=== PATIENT | male | born 1990 | race African-American/Black ===

== ENCOUNTER 2017-06-13 22:09 | Emergency (ER) | payer OTHER, MEDICAID ==
[2017-06-14 00:16] VITALS: BP 147/88
[2017-06-14] MEDS ORDERED: HYDROCODONE/ACETAMINOPHEN 5-325 MG TABLET PO ONE (00:41)
[2017-06-14] MEDS ORDERED: CIPROFLOXACIN HCL 500 MG TABLET PO ONE (00:41)
[2017-06-14] MEDS ORDERED: HYDROCODONE/ACETAMINOPHEN 5-325 MG (6 TAB/ER DISP) PO PRN (00:41)
[2017-06-14] MEDS ORDERED: DIPH/PERTUSS(ACELL)/TETANUS VAC/PF 0.5 ML SYR (>=10YO) IM ONE (00:41)
--- NOTE | 2017-06-14 00:47 | RADIOLOGY REPORT (SQ) ---
EXAM DESCRIPTION: FOOT LEFT COMPLETE CLINICAL HISTORY: 26 years, Male, Stepped on nail/pain COMPARISON: None. NUMBER OF VIEWS: 3 LIMITATIONS: None. FINDINGS: In and area of indicated puncture injury of the plantar aspect of the forefoot, no evidence of radiopaque foreign body and no evidence of bone or joint involvement. 0.8 cm ossicular avulsive fragment of the medial malleolus of the left ankle. IMPRESSION: No acute findings. 2010 [employer]- All Rights Reserved
--- NOTE | 2017-06-14 01:24 | ER Document Report ---
ED General - General Chief Complaint: Puncture Wound to Foot Stated Complaint: WC/LEFT FOOT INJURY Time Seen by Provider: 06/14/17 00:32 Notes: Patient is a 26-year-old male who presents complaining of pain in the bottom of his left foot. Patient says he stepped on nail that went to the bottom of his boot into his foot. He denies being diabetic. He says he only has pain at the area where the nail inserted and then into the distal part of his foot. He says it does hurt when he moves his toes. He denies any other injuries. He is unsure when his last tetanus shot was. He has no other complaints at this time. TRAVEL OUTSIDE OF THE [place] IN LAST 30 DAYS: No Past Medical History - Social History Smoking Status: Unknown if Ever Smoked Frequency of alcohol use: None Drug Abuse: None Family History: Reviewed & Not Pertinent Patient has suicidal ideation: No Patient has homicidal ideation: No Renal/ Medical History: Denies: Hx Peritoneal Dialysis Review of Systems - Review of Systems Notes: My Normal Review Basic REVIEW OF SYSTEMS: CONSTITUTIONAL : Denies fever, chills, or sweats. Denies recent illness. MUSCULOSKELETAL: Puncture wound to bottom of left foot. SKIN: Denies rash or skin lesions. NEUROLOGICAL: Denies sensory or motor loss. ALL OTHER SYSTEMS REVIEWED AND NEGATIVE. Physical Exam - Vital signs Vitals: Temp Pulse Resp BP Pulse Ox 98.2 F 73 16 147/88 H 100 06/14/17 00:14 06/14/17 00:14 06/14/17 00:14 06/14/17 00:14 06/14/17 00:14 - Notes Notes: General Appearance: Well nourished, alert, cooperative, no acute distress, moderate obvious discomfort. Vitals: reviewed, See vital signs table. Extremities: strength 5/5 in all extremities, good pulses in all extremities, patient has a very small puncture wounds about the left foot. Did clean the area with chlorhexidine. I irrigated it thoroughly with saline. Denies any evidence of foreign body. There is no significant swelling or redness or warmth. Patient does have pain when he moves his toes and says it hurts into his foot. He is able to move his toes and his distal sensation is intact. Skin: warm, dry, appropriate color, no rash Neuro: speech clear, oriented x 3, normal affect, responds appropriately to questions. Course - Re-evaluation Re-evalutation: 06/14/17 05:57 Thoroughly cleaned and irrigated the area with patient had a puncture wound. X- ray shows evidence of foreign body or fracture of the foot. Will place him on Cipro to help guard against Pseudomonas and infection. Informed him that there is always still possible he could develop infection therefore he must have a low threshold to return to ER if he has swelling, redness, warmth, or worsening pain in his foot. Patient agrees with plan and will be discharged home. Dictation of this chart was performed using voice recognition software; therefore, there may be some unintended grammatical errors. - Vital Signs Vital signs: Temp Pulse Resp BP Pulse Ox 98.2 F 73 16 147/88 H 100 06/14/17 00:14 06/14/17 00:14 06/14/17 00:14 06/14/17 00:14 06/14/17 00:14 Discharge - Discharge Clinical Impression: Puncture wound of foot Qualifiers: Encounter type: initial encounter Laterality: left Qualified Code(s): S91.332A - Puncture wound without foreign body, left foot, initial encounter Condition: Good Disposition: HOME, SELF-CARE Instructions: Oral Narcotic Medication ([facility]) Additional Instructions: Please continue to keep your foot clean and try not to wear a boot on your foot for the next 2 days. Please follow-up with the orthopedic doctor if you are still having any pain in your foot after 5 days of treatment. Please take the antibiotic as prescribed. This to help prevent infection. Sometimes despite an antibiotic you will still develop an infection. Signs of infection would be redness or swelling to your foot or fevers. If you have any of the symptoms please return to the ER immediately. Prescriptions: Ciprofloxacin HCl [Cipro 500 mg Tablet] 500 mg PO BID #10 tablet Forms: Return to Work Referrals: NEMESIO CASANOVA MD [ACTIVE STAFF] - 06/19/17
== END 2017-06-14 01:30 | disposition home or self-care (01) ==
LOC: ER 22:09
DX: S91.332A Puncture wound without foreign body, left foot, initial encounter (principal); W45.0XXA Nail entering through skin, initial encounter; Y99.0 Civilian activity done for income or pay
CPT/HCPCS: 90471; 90715; 99283

== ENCOUNTER 2018-01-31 10:43 | Emergency (ER) | payer MEDICAID ==
[2018-01-31 10:51] VITALS: BP 139/72
--- NOTE | 2018-01-31 11:28 | ER Document Report ---
HPI - HPI Patient complains to provider of: rash Onset: Yesterday Pain Level: 2 Context: 27 yo male has 3 lesions that were blisters in areas that he scratched. Other family members have impetigo. Associated Symptoms: None Exacerbated by: Denies Relieved by: Denies Similar symptoms previously: No Recently seen / treated by doctor: No - ROS ROS below otherwise negative: Yes Systems Reviewed and Negative: Yes All other systems reviewed and negative Past Medical History - General Information source: Patient - Social History Smoking Status: Unknown if Ever Smoked Lives with: Family Family History: Reviewed & Not Pertinent - Medical History Medical History: Negative Renal/ Medical History: Denies: Hx Peritoneal Dialysis Surgical Hx: Negative Vertical Provider Document - CONSTITUTIONAL Agree With Documented VS: Yes Exam Limitations: No Limitations General Appearance: No Apparent Distress - INFECTION CONTROL TRAVEL OUTSIDE OF THE [place] IN LAST 30 DAYS: No - NEURO Level of Consciousness: Awake - DERM Integumentary: Rash - 3 deroofed bilateral inflamed forearm lesions-looks like impetigo Course - Vital Signs Vital signs: Temp Pulse Resp BP Pulse Ox 98.2 F 72 16 139/72 H 99 01/31/18 10:50 01/31/18 10:50 01/31/18 10:50 01/31/18 10:50 01/31/18 10:50 Discharge - Discharge Clinical Impression: Impetigo Condition: Good Disposition: HOME, SELF-CARE Instructions: Bactroban Ointment ([facility]), Impetigo ([facility]) Additional Instructions: Bactroban 3 times a day for up to 5 days small amount in each area Return to the emergcency room worsening of the symptoms Prescriptions: Mupirocin [Bactroban 2% Ointment 22 gm] 1 applic TP TID #1 tube
== END 2018-01-31 12:15 | disposition home or self-care (01) ==
LOC: ER 10:43
DX: L01.00 Impetigo, unspecified (principal)
CPT/HCPCS: 99282